=== PATIENT | male | born 1995 | race Caucasian/White ===

== ENCOUNTER 2016-06-08 15:43 | Emergency (ER) | payer BC ==
[~2016-06-08] VITALS: Ht 185.4 cm; Wt 85.0 kg
[2016-06-08 15:49] VITALS: BP 104/67; PULSE 91; RESP 16; TEMP 97.9; O2SAT 100
[2016-06-08] MEDS ORDERED: SODIUM CHLOR 0.9% 1000 ML INJ 1,000 ML IV SCH (16:35)
--- NOTE | 2016-06-08 16:39 | PD ---
HPI Chief Complaint: Abdominal Pain Time Seen by Provider: 16:36 Travel History International Travel<30 days: No Contact w/Intl Traveler<30days: No Traveled to known affect area: No History of Present Illness HPI Patient comes in complaining of nausea, vomiting, diarrhea, abdominal cramping ongoing since this morning. Patient states his grandmother and 2 other relatives are sick but is uncertain with what. Denies any known fevers, chest pain, shortness of breath, recent antibiotic use, blood in vomit or stool, reports vomiting is nonbilious. Denies any history of abdominal surgeries. Denies doing anything for this prior to coming to the emergency department. [facility] Past Medical History Medical History: Denies Significant Hx Diminished Hearing: No Influenza Vaccination: No ?: Not Past Surgical History Surgical History: No Previous Surgery Social History Alcohol Use: No Tobacco Use: No Substance Use: No Allergies-Medications (Allergen,Severity, Reaction): Coded Allergies: No Known Allergies (Verified , 06/08/16) Reported Meds & Prescriptions Reported Meds & Active Scripts Active Zofran Odt (Ondansetron Odt) 4 Mg Tab 4 Mg SL Q6HR PRN Review of Systems Except as stated in HPI: all other systems reviewed are Neg Physical Exam Narrative GENERAL: Well-developed, well nourished, in no acute distress, and non-ill appearing. SKIN: Warm and dry. HEAD: Atraumatic. Normocephalic. EYES: Pupils equal and round. EOMI. No scleral icterus. No injection or drainage. ENT: No nasal bleeding or discharge. Mucous membranes pink and moist. NECK: Trachea midline. Supple. No nuclear rigidity. CARDIOVASCULAR: Regular rate and rhythm. No murmur appreciated. RESPIRATORY: No accessory muscle use. No respiratory distress. Clear to auscultation. Breath sounds equal bilaterally. GASTROINTESTINAL: Abdomen soft, non-tender, nondistended. Hepatic and splenic margins not palpable. Normal bowel sounds 4. No pulsatile mass. No guarding. MUSCULOSKELETAL: No obvious deformities. No clubbing. No cyanosis. No edema. Full range of motion. NEUROLOGICAL: Awake and alert. No obvious cranial nerve deficits. Motor grossly within normal limits. Normal speech. PSYCHIATRIC: Appropriate mood and affect; insight and judgment normal. Data Data Last Documented VS Vital Signs Date Time Temp Pulse Resp B/P Pulse Ox O2 Delivery O2 Flow Rate FiO2 06/08/16 18:20 77 20 133/78 99 06/08/16 16:57 Room Air 06/08/16 15:49 97.9 Orders Complete Blood Count With Diff (06/08/16 16:35) Comprehensive Metabolic Panel (06/08/16 16:35) Lipase (06/08/16 16:35) Iv Access Insert/Monitor (06/08/16 16:35) Ecg Monitoring (06/08/16 16:35) Oximetry (06/08/16 16:35) Ondansetron Inj (Zofran Inj) (06/08/16 16:45) Sodium Chlor 0.9% 1000 Ml Inj (Ns 1000 M (06/08/16 16:35) Sodium Chloride 0.9% Flush (Ns Flush) (06/08/16 16:45) Influenzae A/B Antigen (06/08/16 16:35) Ibuprofen (Motrin) (06/08/16 18:00) Labs Laboratory Tests Test 06/08/16 16:50 White Blood Count 11.8 TH/MM3 Red Blood Count 5.82 MIL/MM3 Hemoglobin 16.6 GM/DL Hematocrit 49.6 % Mean Corpuscular Volume 85.3 FL Mean Corpuscular Hemoglobin 28.5 PG Mean Corpuscular Hemoglobin 33.4 % Concent Red Cell Distribution Width 12.0 % Platelet Count 275 TH/MM3 Mean Platelet Volume 7.4 FL Neutrophils (%) (Auto) 86.5 % Lymphocytes (%) (Auto) 3.3 % Monocytes (%) (Auto) 5.6 % Eosinophils (%) (Auto) 1.0 % Basophils (%) (Auto) 3.6 % Neutrophils # (Auto) 10.2 TH/MM3 Lymphocytes # (Auto) 0.4 TH/MM3 Monocytes # (Auto) 0.7 TH/MM3 Eosinophils # (Auto) 0.1 TH/MM3 Basophils # (Auto) 0.4 TH/MM3 CBC Comment DIFF FINAL Differential Comment Sodium Level 138 MEQ/L Potassium Level 3.7 MEQ/L Chloride Level 102 MEQ/L Carbon Dioxide Level 29.8 MEQ/L Anion Gap 6 MEQ/L Blood Urea Nitrogen 11 MG/DL Creatinine 1.50 MG/DL Estimat Glomerular Filtration 60 ML/MIN Rate Random Glucose 101 MG/DL Calcium Level 9.0 MG/DL Total Bilirubin 1.3 MG/DL Aspartate Amino Transf 8 U/L (AST/SGOT) Alanine Aminotransferase 15 U/L (ALT/SGPT) Alkaline Phosphatase 78 U/L Total Protein 7.7 GM/DL Albumin 4.3 GM/DL Lipase 107 U/L MDM Medical Decision Making Medical Screen Exam Complete: Yes Emergency Medical Condition: Yes Differential Diagnosis Influenza, electrolyte abnormality, pancreatitis, gastroenteritis, other Narrative Course The patient presented with abdominal pain vomiting and diarrhea.. The patient appeared comfortable, hydrated and the abdominal exam was unremarkable and minimal to nontender to me, and without defined focal tenderness. Laboratory evaluation revealed no significant abnormality. There was no evidence of an acute, surgical abdomen at this time. There was no clinical evidence to support bowel obstruction, cholecystitis/cholelithiasis, pancreatitis, perforation of gastric ulcer, colitis, diverticulitis, bacterial peritonitis, obstruction, volvulus, early appendicitis, or hernial incarceration or strangulation at this time. There was no evidence to support vascular pathology such as AAA, mesenteric ischemia, nor significant GIB. There was also no clinical evidence by history, exam or risk factors to suggest atypical presentation of cardiac disease such as ACS, AMI or atypical angina. No evidence to suggest genitourinary etiology as well. During the course of the ED visit the patient was given IVF, the patient noted improvement. The patient was able to tolerate fluids at discharge. Clinical picture was discussed with the patient, as well as plan of care. The patient was instructed to follow up with their physician. Abdominal pain warnings were discussed with the patient. The patient is to return if worsens, pain worsens or changes, develop fever, inability to tolerate fluids with or without vomiting, unable to establish follow up or as needed. The patient agrees with plan. Patient in no obvious distress upon re-evaluation. All pertinent laboratory result(s) discussed with patient. Patient was asked if they wanted to speak to my attending, which the patient did not wish to do at this time. I discussed patient with Dr. Barrios prior discharge, who is in agreement with plan of care and disposition. Any questions/concerns in reference to patient diagnosis/ condition discussed and clarified prior to patient's discharge. Reinforced sheer importance of close follow up with patient's primary physician or primary care clinic. Instructed patient to return to ED immediately, if symptoms return/ worsen. Pt showed understanding of above instructions. Further instructions and recommendations were detailed in discharge paperwork. Pt ambulated without difficulty out of ED at discharge. Diagnosis Primary Impression: Abdominal pain Qualified Code: R10.9 - Abdominal pain, unspecified location Additional Impression: Nausea vomiting and diarrhea Patient Instructions: Abdominal Pain (ED), Acute Diarrhea (ED), Acute Nausea and Vomiting (DC), General Instructions Additional Instructions: Follow-up with your primary care physician in 2-3 days for evaluation. Take all medication as prescribed. Use [id number] Tylenol and/or ibuprofen as needed for pain and/or fevers. Follow instructions on the packaging. Drink plenty of non-caffeinated and nonalcoholic fluids. Return to the emergency department if symptoms get worse. Med/Other Pt SpecificInfo: Prescription(s) given Scripts Ondansetron Odt (Zofran Odt)4 Mg Tab4 Mg SL Q6HR PRN (Nausea/Vomiting) #12 TAB Ref 0 Prov:Vamshi Barrios MD 06/08/16 Disposition: 01 DISCHARGE HOME Condition: Stable Trino Oneill Jun 08, 2016 16:39
[2016-06-08] MEDS ORDERED: SODIUM CHLORIDE 0.9% FLUSH 5 ML FLUSH IVF PRN (16:45)
[2016-06-08] MEDS ORDERED: ONDANSETRON HCL 4 MG/2 ML VIAL IVP ONE (16:45)
[2016-06-08 16:57] VITALS: O2SAT 97
[2016-06-08 17:03] LABS: AUTOMATED NEUTROPHIL # 10.2 TH/MM3 (1.8-7.7); BASOPHIL # 0.4 TH/MM3 (0-0.2); BASOPHIL % 3.6 % (0.0-2.0); EOSINOPHIL # 0.1 TH/MM3 (0-0.4); HEMATOCRIT 49.6 % (39.0-51.0); HEMO FLAGS DIFF FINAL; LYMPH % 3.3 % (9.0-44.0); LYMPHOCYTE # 0.4 TH/MM3 (1.0-4.8); MEAN CELL VOLUME 85.3 FL (80.0-100.0); MEAN CORPUSCULAR HEMOGLOBIN 28.5 PG (27.0-34.0); MEAN CORPUSCULAR HGB CONC 33.4 % (32.0-36.0); MONO % 5.6 % (0.0-8.0); NEUT % 86.5 % (16.0-70.0); PLATELET COUNT 275 TH/MM3 (150-450); RED BLOOD COUNT 5.82 MIL/MM3 (4.50-5.90); WHITE BLOOD COUNT 11.8 TH/MM3 (4.0-11.0)
[2016-06-08 17:11] LABS: CHLORIDE 102 MEQ/L (98-107); POTASSIUM 3.7 MEQ/L (3.5-5.1); SODIUM (NA) 138 MEQ/L (136-145)
[2016-06-08 17:16] LABS: ANION GAP 6 MEQ/L (5-15); BICARBONATE 29.8 MEQ/L (21.0-32.0); BLOOD UREA NITROGEN 11 MG/DL (7-18)
[2016-06-08 17:18] LABS: ALT (GPT) 15 U/L (9-52); AST (GOT) 8 U/L (15-39)
[2016-06-08 17:19] LABS: GLOMERULAR FILTRATION RATE 60 ML/MIN (>89)
[2016-06-08 17:20] LABS: TOTAL BILIRUBIN ADULT 1.3 MG/DL (0.2-1.0)
[2016-06-08 17:21] LABS: ALKALINE PHOSPHATASE 78 U/L (45-117)
[2016-06-08] MEDS ORDERED: IBUPROFEN 800 MG TAB PO ONE (18:00)
[2016-06-08] MEDS ORDERED: ZOFR4TAB3 SL (18:08)
[2016-06-08 18:20] VITALS: BP 133/78
== END 2016-06-08 18:21 | disposition home or self-care (01) ==
LOC: PHED 15:43 → PHEFT 18:21
DX: R10.9 Unspecified abdominal pain (principal); R19.7 Diarrhea, unspecified; R11.2 Nausea with vomiting, unspecified
CPT/HCPCS: 80053; 83690; 85025; 87804; 96361; 96374; 99284; J2405; J7030

== ENCOUNTER 2016-08-09 16:09 | Emergency (ER) | payer OTHER, BC ==
[~2016-08-09] VITALS: Ht 200.7 cm; Wt 86.4 kg
[~2016-08-09 16:09] MED LIST: ZOFR4TAB3 SL
[2016-08-09 16:10] VITALS: BP 113/81; PULSE 73; RESP 16; TEMP 98.2; O2SAT 97
[2016-08-09] MEDS ORDERED: NAPR500T PO (16:28)
[2016-08-09] MEDS ORDERED: ROBA750T PO (16:28)
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
== END 2016-08-09 16:43 | disposition home or self-care (01) ==
LOC: PHEFT 16:09
DX: M54.6 Pain in thoracic spine (principal); M79.602 Pain in left arm; R41.0 Disorientation, unspecified; Z86.59 Personal history of other mental and behavioral disorders; V89.2XXA Person injured in unspecified motor-vehicle accident, traffic, initial encounter; W22.11XA Striking against or struck by driver side automobile airbag, initial encounter
CPT/HCPCS: 99283

== ENCOUNTER 2018-04-16 16:00 | Observation (INO) ==
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
[2018-04-16 16:35] LABS: Baso # (Auto) 0.1 th/mm3 (0.0-0.2); Baso % (Auto) 0.8 % (0.0-2.0); Eos # (Auto) 0.1 th/mm3 (0.0-0.4); Eos % (Auto) 0.9 % (0.0-4.0); Hematocrit 47.3 % (39.0-51.0); Hemoglobin 16.1 gm/dL (13.0-17.0); Lymph # (Auto) 1.4 th/mm3 (1.0-4.8); Lymph % (Auto) 14.1 % (9.0-44.0); Mean Corpuscular HGB Conc 34.1 % (32.0-36.0); Mean Corpuscular Hemoglobin 29.7 pg (27.0-34.0); Mean Corpuscular Volume 87.1 fL (80.0-100.0); Mean Platelet Volume 8.3 fL (7.0-11.0); Mono # (Auto) 0.5 th/mm3 (0.0-0.9); Mono % (Auto) 4.8 % (0.0-8.0); Neut # (Auto) 7.6 th/mm3 (1.8-7.7); Neut % (Auto) 79.4 % (16.0-70.0); Platelet Count 298 th/mm3 (150-450); Red Blood Count 5.43 mil/mm3 (4.50-5.90); Red Cell Distribution Width 12.1 % (11.6-17.2); White Blood Count 9.7 th/mm3 (4.0-11.0)
[2018-04-16] MEDS ORDERED: Lidocaine 1%/Epinephrine 1:100,000 Inj 20 ML Vial INFILTRATN ONE (16:35)
[2018-04-16] MEDS ORDERED: Tetanus/Diphtheria Toxoid Adult Vaccine Inj 0.5 ML Vial IM ONE (16:35)
[2018-04-16] MEDS ORDERED: Lidocaine 1%/Epinephrine 1:100,000 Inj 20 ML Vial ONE (16:36)
[2018-04-16 16:42] LABS: Chloride 102 meq/L (98-107); Potassium 4.1 meq/L (3.5-5.1); Sodium 137 meq/L (136-145)
[2018-04-16 16:45] LABS: Albumin 4.4 g/dL (3.4-5.0); Anion Gap 17 meq/L (5-15); Carbon Dioxide 18.3 meq/L (21.0-32.0)
[2018-04-16 16:46] LABS: Blood Urea Nitrogen 11 mg/dL (7-18); Glucose,Random 144 mg/dL (74-106)
[2018-04-16 16:48] LABS: Alanine Aminotransferase 25 U/L (12-78); Aspartate Aminotransferase 38 U/L (15-37)
[2018-04-16 16:49] LABS: Glomerular Filtration Rate 48 mL/min (>89)
[2018-04-16 16:51] LABS: Alkaline Phosphatase 66 U/L (45-117)
[2018-04-16] MEDS: Sod Chloride 0.9% Inj 1,000 ML IV.CONT SCH (16:53)
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
--- NOTE | 2018-04-16 17:14 | CT ---
EXAM DATE: 04/16/2018 5:04 PM EST AGE/SEX: 22 years / Male INDICATIONS: Patient had a seizure. Fell and hit head and face. CLINICAL DATA: This is the patient's initial encounter. Patient reports that signs and symptoms have been present for 1 day and indicates a pain score of 6/10. MEDICAL/SURGICAL HISTORY: . Anxiety. Seizures as a child. . RADIATION DOSE: 26.22 CTDI (mGy) COMPARISON: No prior exams available for comparison. TECHNIQUE: Contiguous images in the axial and coronal planes were obtained using helical multirow de tector technique. Using automated exposure control and adjustment of the mA and/or kV according to p atient size, radiation dose was kept as low as reasonably achievable to obtain optimal diagnostic vega lity images. DICOM format image data is available electronically for review and comparison. FINDINGS: Orbits: The orbital and infraorbital osseous structures are intact. The retroconal structures have a normal configuration. No radiopaque foreign bodies are seen. Nasal Bone: There is a subtle fracture involving the right nasal bone. Zygomatic Arches: Symmetric without evidence of fracture. Sinuses: There is mucosal thickening involving the left frontal sinus and anterior ethmoid air cells . Minimal mucosal thickening is noted within the maxillary sinuses bilaterally. No air-fluid levels s een. Nasal Cavity: The nasal septum is intact and midline. The lacrimal ducts are intact. Right-sided co ncha bullosa is noted. Soft Tissues: No radiopaque foreign bodies seen. No soft-tissue swelling is seen. Intracranial: No intracranial air seen. Cribriform Plate: Grossly intact. CONCLUSION: 1. Subtle fracture involving the right nasal bone. 2. Mucosal thickening involving the left frontal sinus, left anterior ethmoid air cells and bilatera l maxillary sinuses. 3. Right-sided alphonso bullosa. Electronically signed by: Lalit Dinh MD Board Certified Radiologist 04/16/2018 5:12 PM EST
[2018-04-16 17:37] LABS: Amphetamine Screen,Urine Pos (Neg)
[2018-04-16 17:38] LABS: Barbiturate Screen,Urine Neg (Neg)
[2018-04-16 17:41] LABS: Cannabinoid Screen,Urine Pos (Neg)
[2018-04-16 17:42] LABS: Cocaine Screen,Urine Neg (Neg)
[2018-04-16] MEDS ORDERED: levETIRAcetam 1000mg/100mL Inj 100 ML IV.SIG ONE (17:42)
[2018-04-16] MEDS ORDERED: Fosphenytoin Inj 1,000 MGPE in Sodium Chlor 0.9% Inj 50 ML IV.SIG ONE (17:42)
[2018-04-16 18:00] LABS: Opiate Screen,Urine Neg (Neg)
[2018-04-16] MEDS ORDERED: Bisacodyl 10 MG Supp RECTAL PRN (18:22)
[2018-04-16] MEDS: Acetaminophen 325 MG Tablet PO PRN (20:57)
[2018-04-16] MEDS: levETIRAcetam 500 MG Tablet PO SCH (20:57)
[2018-04-17] MEDS: Sod Chloride 0.9% Inj 1,000 ML IV.CONT SCH ×3 (02:11→17:10)
[2018-04-17 08:40] LABS: Baso % (Auto) 0.1 % (0.0-2.0); Eos # (Auto) 0.1 th/mm3 (0.0-0.4); Eos % (Auto) 0.6 % (0.0-4.0); Hematocrit 44.7 % (39.0-51.0); Hemoglobin 14.9 gm/dL (13.0-17.0); Lymph # (Auto) 1.1 th/mm3 (1.0-4.8); Lymph % (Auto) 6.9 % (9.0-44.0); Mean Corpuscular HGB Conc 33.2 % (32.0-36.0); Mean Corpuscular Volume 87.2 fL (80.0-100.0); Mean Platelet Volume 8.9 fL (7.0-11.0); Mono # (Auto) 0.9 th/mm3 (0.0-0.9); Mono % (Auto) 5.6 % (0.0-8.0); Neut # (Auto) 14.5 th/mm3 (1.8-7.7); Neut % (Auto) 86.8 % (16.0-70.0); Platelet Count 258 th/mm3 (150-450); Red Blood Count 5.13 mil/mm3 (4.50-5.90); Red Cell Distribution Width 12.3 % (11.6-17.2); White Blood Count 16.6 th/mm3 (4.0-11.0)
[2018-04-17] MEDS: levETIRAcetam 500 MG Tablet PO SCH ×2 (08:41→22:36)
[2018-04-17 08:51] LABS: Potassium 3.5 meq/L (3.5-5.1)
--- NOTE | 2018-04-17 09:15 | P.HPIM ---
History of Present Illness Primary Care Physician: UNKNOWN Chief Complaint: seizure History of Present Illness: 22-year-old male was brought in by EMS after a syncopal episode, facial injury and seizure. Patient was walking around in the house and has loss of consciousness, struck the face on the counter and fell on the floor and started having seizure activity. Seizure activity was described as generalized tonic-clonic seizure which lasted about 25-30 seconds and resolved completely. The seizure episode was witnessed by family members. No urinary or bladder incontinence. Patient does not have any recollection of the event. Patient denies any headache. Patient complained of facial pain and laceration to right side of the cheek and the nose. Patient denies any neck pain. Patient denies any chest pain or shortness of breath. Patient denies abdominal pain. Patient denies any focal weakness or numbness of the extremity. Patient denies any extremity injury. Patient has history of seizure when he was a child however no problems since then. Patient is not on any seizure medication. Patient has history anxiety and has been taking Xanax twice a day. Patient has intermittent nausea for the past 2 years that has been taking Phenergan intermittently. Patient states that he is not up-to-date with TD booster. Patient denies any alcohol or drug abuse. Patient denies any other medical problems. The patient is back to his baseline mentation. Says he has pain in his right face and feels weak. Otherwise no other complaints. Patient says he takes xanax 0.5 mg daily for anxiety however he has not taking this med for the past week. Review of Systems Review of Systems: all other systems reviewed are negative [facility] Medical History Medical History Anxiety (Acute) History of seizures as a child (Acute) No significant past surgical history (Acute) Family History Family History Mother HTN (hypertension) Grandparent Heart problem Social History Social History Substance History: No History of Abuse Second Hand Smoke Exposure: No Smoking Status: Never smoker How Often Do You Have a Drink Containing Alcohol: Never Recent Travel in [facility] within the Last 8 Weeks: No Recent Out of Country Travel within the Last 8 Weeks: No Immunization History Tetanus Immunization: Unsure Medications and Allergies Allergies Allergy/AdvReac Type Severity Reaction Status Date / Time No Known Allergies Allergy none Uncoded 04/16/18 16:35 Home Medications Medication Instructions Recorded Confirmed Type alprazolam [Xanax] 0.5 mg PO BID PRN 04/16/18 04/16/18 History Active Medications: Active Medications Acetaminophen (Tylenol) 650 mg PO Q4H PRN PRN Reason: Temp > 100.4,PAIN 1-10 Last Admin: 04/16/18 20:57 Dose: 650 mg Al Hydroxide/Mg Hydroxide (Milk Of Magnesia Liq) 30 ml PO Q12H PRN PRN Reason: Mild Constipation Bisacodyl (Dulcolax Supp) 10 mg RECTAL DAILY PRN PRN Reason: SEVERE CONSITIPATION Sodium Chloride (Ns Inj) 1,000 mls @ 125 mls/hr IV.CONT .Q8H [facility] Last Admin: 04/17/18 08:43 Dose: 125 mls/hr Lactulose (Lactulose Liq) 30 ml PO DAILY PRN PRN Reason: SEVERE CONSITIPATION Levetiracetam (Keppra) 500 mg PO BID [facility] Last Admin: 04/17/18 08:41 Dose: 500 mg Lorazepam (Ativan Inj) 2 mg IV.PUSH Q10M PRN PRN Reason: SEE LABEL COMMENTS Ondansetron HCl (Zofran Inj) 4 mg IV.PUSH Q6H PRN PRN Reason: NAUSEA OR VOMITING Phenytoin Sodium (Dilantin Inj) 100 mg IV.PUSH Q8H [facility] Last Admin: 04/17/18 02:12 Dose: 100 mg Sennosides (Senokot) 17.2 mg PO Q12H PRN PRN Reason: Moderate Constipation Sodium Chloride (Ns Flush) 2 ml IV.FLUSH BID [facility] Last Admin: 04/17/18 08:42 Dose: Not Given Sodium Chloride (Ns Flush) 2 ml IV.FLUSH PRN PRN PRN Reason: FLUSH AFTER USING IV ACCESS Physical Exam Vital signs: Last Vital Signs Temp 97.2 F L 04/17/18 08:00 Pulse 64 04/17/18 08:00 Resp 18 04/17/18 08:00 BP 121/61 04/17/18 08:00 Pulse Ox 100 04/17/18 08:00 Intake & Output 04/15/18 04/16/18 04/17/18 04/18/18 06:59 06:59 06:59 06:59 Intake Total 1650 / 1650 1000 / 1000 Balance 1650 / 1650 1000 / 1000 Weight 90.5 kg Narrative: GENERAL: Young male, well-nourished, well-developed patient in no apparent distress. SKIN: Warm and dry. HEAD: Normocephalic. 4 cm laceration right cheek area repaired. Patient has 1.5 cm laceration on the right side of the nose repaired. EYES: Pupils equal and round. No scleral icterus. No injection or drainage. ENT: No nasal bleeding or discharge. Mucous membranes pink and moist. NECK: Trachea midline. No JVD. CARDIOVASCULAR: Regular rate and rhythm. RESPIRATORY: No accessory muscle use. Clear to auscultation. Breath sounds equal bilaterally. GASTROINTESTINAL: Abdomen soft, non-tender, nondistended. Hepatic and splenic margins not palpable. MUSCULOSKELETAL: Extremities without clubbing, cyanosis, or edema. No obvious deformities. NEUROLOGICAL: Awake and alert. No obvious cranial nerve deficits. Motor grossly within normal limits. Five out of 5 muscle strength in the arms and legs. Normal speech. PSYCHIATRIC: Appropriate mood and affect; insight and judgment normal. Results Labs CBC & Chem 7: 04/17/18 07:10 04/17/18 07:[address] 04/16/18 16:18 CONCLUSION: 1. Subtle fracture involving the right nasal bone. 2. Mucosal thickening involving the left frontal sinus, left anterior ethmoid air cells and bilateral maxillary sinuses. 3. Right-sided alphonso bullosa. Head CT 04/16/18 16:18 CONCLUSION: 1. Negative CT Head non contrast. . Caprini VTE Risk Assessment Caprini VTE Risk Assessment: No/Low Risk (score <= 1) Caprini Risk Assessment Model: Point Value = 1 Point Value = 2 Point Value = 3 Point Value = 5 Age 41-60 Minor surgery BMI > 25 kg/m2 Swollen legs Varicose veins or History of unexplained or recurrent spontaneous Oral contraceptives or hormone replacement Sepsis (< 1 month) Serious lung disease, including pneumonia (< 1 month) Abnormal pulmonary function Acute myocardial infarction Congestive heart failure (< 1 month) History of inflammatory bowel disease Medical patient at bed rest Age 61-74 Arthroscopic surgery Major open surgery (> 45 min) Laparoscopic surgery (> 45 min) Malignancy Confined to bed (> 72 hours) Immobilizing plaster cast Central venous access Age >= 75 History of VTE Family history of VTE Factor V Leiden Prothrombin [id number] Lupus anticoagulant Anticardiolipin antibodies Elevated serum homocysteine Heparin-induced thrombocytopenia Other congenital or acquired thrombophilia Stroke (< 1 month) Elective arthroplasty Hip, pelvis, or leg fracture Acute spinal cord injury (< 1 month) Prophylaxis Regimen: Total Risk Factor Score Risk Level Prophylaxis Regimen 0-1 Low Early ambulation 2 Moderate Order ONE of the following: *Sequential Compression Device (SCD) *Heparin 5000 units SQ BID 3-4 Higher Order ONE of the following medications: *Heparin 5000 units SQ TID *Enoxaparin/Lovenox 40 mg SQ daily (WT < 150 kg, CrCl > 30 mL/min) *Enoxaparin/Lovenox 30 mg SQ daily (WT < 150 kg, CrCl > 10-29 mL/min) *Enoxaparin/Lovenox 30 mg SQ BID (WT < 150 kg, CrCl > 30 mL/min) AND/OR *Sequential Compression Device (SCD) 5 or more Highest Order ONE of the following medications: *Heparin 5000 units SQ TID (Preferred with Epidurals) *Enoxaparin/Lovenox 40 mg SQ daily (WT < 150 kg, CrCl > 30 mL/min) *Enoxaparin/Lovenox 30 mg SQ daily (WT < 150 kg, CrCl > 10-29 mL/min) *Enoxaparin/Lovenox 30 mg SQ BID (WT < 150 kg, CrCl > 30 mL/min) AND *Sequential Compression Device (SCD) Assessment and Plan Plan Patient is a 22-year-old male status post witnessed seizures at home and fall Seizure Fall secondary to seizure 4 cm laceration right cheek repaired in ER 1.5 cm laceration on the right side of the nose repaired in the ER History of anxiety on Xanax as needed 0.5 mg daily however patient says he was made taking Xanax for the past week Right nasal bone fracture Right-sided alphonso bullosa Face CT reviewed as above CT head reviewed negative Plan for MRI May need consult to facial surgery consult / ENT/ ophtalmo if need Patient is saturating well on room air at this time and is able to eat [place] as needed for pain DVT prophylaxis with ambulation H&P: Quality VTE Deep Vein Thrombosis/Pulmonary Embolism Present on Admission: No
[2018-04-17 09:17] LABS: Calcium 8.2 mg/dL (8.5-10.1); Carbon Dioxide 26.1 meq/L (21.0-32.0); Phenytoin (Dilantin) 11.5 mcg/mL (10.0-20.0)
--- NOTE | 2018-04-17 11:33 | MR ---
EXAM DATE: 04/17/2018 11:26 AM EST AGE/SEX: 22 years / Male INDICATIONS: Seizures. CLINICAL DATA: This is the patient's subsequent encounter. Patient reports that signs and symptoms h ave been present for 2 days and indicates a pain score of 0/10. MEDICAL/SURGICAL HISTORY: Seizures. None. COMPARISON: [facility], CT HEAD W/O CONTRAST, 04/16/2018. . TECHNIQUE: Multiplanar, multisequence examination of the brain was performed without contrast. FINDINGS: Cerebrum: The ventricles are normal for age. No evidence of midline shift, mass lesion, hemorrhage or acute infarction. No extraaxial fluid collections are seen. The pituitary gland and suprasellar cistern are normal in configuration. White Matter: No significant signal abnormalities are seen in the white matter. Posterior Fossa: The cerebellum and brainstem are intact. The 4th ventricle is midline. The cerebel lopontine angle is unremarkable. The cerebellar tonsils are normal in position. Diffusion Imaging: No focal areas of restricted diffusion are seen. No evidence of acute infarction . Extracranial: The visualized portions of the orbits and paranasal sinuses are unremarkable. CONCLUSION: 1. Negative MR Brain non contrast. Electronically signed by: Lalit Dinh MD Board Certified Radiologist 04/17/2018 11:32 AM EST
[2018-04-17] MEDS: Acetaminophen 325 MG Tablet PO PRN (11:47)
--- NOTE | 2018-04-17 17:19 | MG ---
cc: Jorge A Waldrop MD, PhD TEST NUMBER: [id number] TECHNIQUE: A 17-channel EEG. DESCRIPTION: The background rhythm shows a symmetrical alpha rhythm, frequency 8-10 Hz. Amplitude is 20-30 microvolts. There is some muscle artifact as well as eye movement artifacts seen and some sharp activity is identified bilaterally, which is fairly high in amplitude. Hyperventilation was done. No change in ventricular rhythm. INTERPRETATION: Mildly abnormal study. Sharp activity is identified bilaterally, which may be consistent with underlying generalized seizure. Jorge A Waldrop MD, PhD PACO/ct , 04:40 PM , 04:45 PM
[2018-04-18] MEDS: Sod Chloride 0.9% Inj 1,000 ML IV.CONT SCH ×2 (01:50→08:35)
[2018-04-18] MEDS: levETIRAcetam 500 MG Tablet PO SCH (08:34)
--- NOTE | 2018-04-18 10:17 | P.PNIM ---
Subjective Interval history: The patient appears in not acute distress. Says pain on his right side of his face is controlled by medications. He is able to ambulate. He is saturating well on room air. Able to eat. Patient did not have any seizures since he came to the hospital. No fever or chills. Says she already has neurology doctor that family is recommended is to follow-up as outpatient. Patient feels comfortable to go home. Patient says advised not to drive until cleared by neurology doctor. Physical Exam Vital signs: Last Vital Signs Temp 97.7 F 04/18/18 08:58 Pulse 62 04/18/18 08:58 Resp 14 04/18/18 08:58 BP 107/56 L 04/18/18 08:58 Pulse Ox 97 04/18/18 08:58 Intake & Output 04/16/18 04/17/18 04/18/18 04/19/18 06:59 06:59 06:59 06:59 Intake Total 1650 / 1650 3520 / 3520 950 / 950 Balance 1650 / 1650 3520 / 3520 950 / 950 Weight 90.5 kg 91.8 kg Narrative: GENERAL: Young male, well-nourished, well-developed patient in no apparent distress. HEAD: Normocephalic. 4 cm laceration right cheek area repaired. Patient has 1.5 cm laceration on the right side of the nose repaired. EYES: Pupils equal and round. No scleral icterus. No injection or drainage. ENT: No nasal bleeding or discharge. Mucous membranes pink and moist. NECK: Trachea midline. No JVD. CARDIOVASCULAR: Regular rate and rhythm. RESPIRATORY: No accessory muscle use. Clear to auscultation. Breath sounds equal bilaterally. GASTROINTESTINAL: Abdomen soft, non-tender, nondistended. Hepatic and splenic margins not palpable. MUSCULOSKELETAL: Extremities without clubbing, cyanosis, or edema. No obvious deformities. NEUROLOGICAL: Awake and alert. No obvious cranial nerve deficits. Motor grossly within normal limits. Five out of 5 muscle strength in the arms and legs. Normal speech. PSYCHIATRIC: Appropriate mood and affect; insight and judgment normal. Results Labs CBC & Chem 7: 04/17/18 07:10 04/17/18 07:10 Imaging Imaging: Impressions Head MRI 04/17/18 17:44 CONCLUSION: 1. Negative MR Brain non contrast. Assessment and Plan Plan Patient is a 22-year-old male status post witnessed seizures at home and fall Seizure Fall secondary to seizure 4 cm laceration right cheek repaired in ER 1.5 cm laceration on the right side of the nose repaired in the ER History of anxiety on Xanax as needed 0.5 mg daily however patient says he was made taking Xanax for the past week Right nasal bone fracture Right-sided alphonso bullosa Face CT reviewed as above CT head reviewed negative MRI brain reviewed and normal Patient to follow-up as outpatient with oral maxillofacial surgery Patient is saturating well on room air at this time and is able to eat [place] as needed for pain, did not use much EEG reviewed consistent with generalized seizure Continue phenytoin and Keppra Do not drive until cleared by neurology . Follow-up with neurology as outpatient DVT prophylaxis with ambulation Discharge plan Discharge home in stable condition to follow-up with PCP, neurology, oral maxillofacial doctor as outpatient. Return to ER or to go to PCP to remove sutures from laceration Medications per medication reconciliation's Diet regular as tolerated Activity ad ольга. as tolerated. Do not drive until cleared by neurology Discussed with the patient, nurse. Discussed with his mother by phone at patient request. At discharge time: > 35 min Progress Note: Quality VTE Deep Vein Thrombosis/Pulmonary Embolism Present on Admission: No
[2018-04-18 13:37] VITALS: BP 126/86; PULSE 80; RESP 19; TEMP 97.6; O2SAT 99
== END 2018-04-18 16:09 | disposition home or self-care (01) ==
LOC: PHED 16:00 → PHEDA 17:51 → INTOOBSV 17:51 → PH3 19:00
PROVIDERS: ADMIT Hospitalist; ATTEND Hospitalist
CPT/HCPCS: 12011; 70450; 70486; 70551; 80048; 80053; 80185; 80307; 85025; 90471; 90702; 90714; 90718; 95819; 96361; 96365; 96375; 96376; 99285; G0378; J1165; J1953; J7030; Q2009